=== PATIENT | female | born 1995 | race Two or more races ===

== ENCOUNTER 2019-01-05 20:26 | Emergency (ER) | payer OTHER ==
[~2019-01-05] VITALS: Ht 162.6 cm; Wt 84.8 kg
[2019-01-05 20:49] VITALS: Ht 162.6 cm; Wt 84.8 kg
[2019-01-05 23:20] VITALS: BP 107/69
== END 2019-01-05 23:20 | disposition home or self-care (01) ==
LOC: ED 20:26
DX: R10.9 Unspecified abdominal pain (principal); R07.81 Pleurodynia
CPT/HCPCS: J1885